=== PATIENT | female | born 1990 | race Two or more races ===

== ENCOUNTER 2024-12-24 23:31 | Emergency (ER) | payer OTHER ==
[2024-12-24 23:41] VITALS: TEMP 98; BMI 34.7
[2024-12-24 23:42] VITALS: RESP 18
[2024-12-24] MEDS: LACTATED RINGERS SOLUTION 1,000 ML/1,000 ML INFUS.BAG IV SCH (23:50)
[2024-12-25 00:44] VITALS: BP 101/71; PULSE 103
[2024-12-25 01:11] LABS: BASO % 0.2 % (0-2.0); EOS % 0.5 % (0-4.5); HEMATOCRIT 35.6 % (32.4-45.2); HEMOGLOBIN 12.2 GM/dL (10.7-15.3); LYMPH % 23.2 % (8-40); MCH 31.9 pg (25.7-33.7); MCHC 34.2 g/dl (32.0-36.0); MEAN CELL VOLUME 93.3 fl (80-96); MEAN PLT VOLUME 8.5 fl (7.5-11.1); MONO % 6.7 % (3.8-10.2); NEUT % 69.4 % (42.8-82.8); PLATELET COUNT 182 10^3/uL (134-434); RBC 3.81 M/mm3 (3.60-5.2); RDW 13.7 % (11.6-15.6); WHITE BLOOD COUNT 13.5 K/mm3 (4.0-10.0)
[2024-12-25 01:22] LABS: INR 0.94 (0.83-1.09); PROTHROMBIN TIME (PATIENT) 10.2 SEC (9.7-13.0)
[2024-12-25 02:15] LABS: POTASSIUM 3.5 mmol/L (3.5-5.1)
[2024-12-25 02:17] LABS: ALBUMIN 3.3 g/dl (3.4-5.0); BLOOD UREA NITROGEN 8.6 mg/dL (7-18); CALCIUM 8.8 mg/dL (8.5-10.1)
[2024-12-25 02:20] LABS: CREATININE 0.8 mg/dL (0.55-1.3)
[2024-12-25 02:22] LABS: BILIRUBIN,TOTAL 0.4 mg/dL (0.2-1); TOT PROT 6.8 g/dl (6.4-8.2)
== END 2024-12-25 01:15 | disposition short-term general hospital (02) ==
LOC: FER 23:31
DX: O99.413 Diseases of the circulatory system complicating pregnancy, third trimester (principal); I47.10 Supraventricular tachycardia, unspecified; Z3A.31 31 weeks gestation of pregnancy
CPT/HCPCS: 36415; 80053; 84484; 85025; 85610; 93005; 99285-25